=== PATIENT | female | born 1950 | race Caucasian/White ===

== ENCOUNTER 2020-03-08 16:02 | Emergency (ER) | payer MEDICARE, MEDICAID ==
[~2020-03-08] VITALS: Ht 162.6 cm; Wt 72.0 kg
[~2020-03-08 16:02] MED LIST: ATEN50TA PO; ATOR40TA70 PO; BENA20TA10 PO; GABA-529 PO
[2020-03-08] MEDS ORDERED: HYDROCODONE/ACETAMINOPHEN 5/325MG TABLET PO ONE (16:45)
[2020-03-08] MEDS ORDERED: LIDOCAINE HCL 1% 20ML VIAL (Pyxis) INJ INFIL ONE (18:15)
[2020-03-08] MEDS ORDERED: HYDR-4346 MT (19:21)
[2020-03-08] MEDS ORDERED: IBUP-2029 MT (19:21)
[2020-03-08 19:55] VITALS: BP 138/64
== END 2020-03-08 19:55 | disposition home or self-care (01) ==
LOC: ER 16:02
DX: S52.591A Other fractures of lower end of right radius, initial encounter for closed fracture (principal); I10 Essential (primary) hypertension; E78.00 Pure hypercholesterolemia, unspecified; M19.90 Unspecified osteoarthritis, unspecified site; W01.0XXA Fall on same level from slipping, tripping and stumbling without subsequent striking against object, initial encounter; Y93.89 Activity, other specified; Y92.017 Garden or yard in single-family (private) house as the place of occurrence of the external cause
CPT/HCPCS: 25605; 70450; 70486; 73090; 73100; 73110; 73130; 99285; J3490